=== PATIENT | male | born 1935 | race Hispanic/Latino ===

== ENCOUNTER 2020-08-03 08:14 | Outpatient (CLI) | payer MEDICARE ==
--- NOTE | 2020-08-03 12:11 | Vascular Lab Report ---
ARTERIAL DOPPLER HISTORY: Atypical weight loss. FINDINGS: Duplex Doppler evaluation of the aorta, SMA and celiac axis was performed. The exam was ana hnically difficult. The aorta measured 2.4 cm proximally, 2.4 cm in its midportion and 2.3 cm distally. Atherosclerotic d isease is scattered diffusely. Velocities are unremarkable. Evaluation of the celiac axis and SMA demonstrate turbulent flow with velocity elevation of 479 cm/s at the proximal SMA. IMPRESSION: 1. Atherosclerotic disease is scattered diffusely. 2. 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 Signer Name: Tyrell Del Toro MD Signed: 08/03/2020 11:40 AM Workstation Name: [id number]
== END 2020-08-03 08:15 | disposition home or self-care (01) ==
LOC: VAS 08:14
PROVIDERS: ATTEND Surgery Vascular Surgery
DX: I25.10 Atherosclerotic heart disease of native coronary artery without angina pectoris (principal); I65.21 Occlusion and stenosis of right carotid artery
CPT/HCPCS: 93979